=== PATIENT | male | born 1950 | race Caucasian/White ===

== ENCOUNTER 2018-07-21 01:05 | Observation (INO) | payer MEDICARE ==
[2018-07-21 01:38] LABS: #Eosinphils 0.4 thou/uL (0.0-0.7); #Lymphocytes 1.3 thou/uL (1.20-3.40); #Monocytes 0.6 thou/uL (0.11-0.59); #Neutrophils 5.4 thou/uL (1.40-6.50); %Basophils 0.4 % (0.0-1.0); %Eosinophils 4.6 % (0.0-10.0); %Monocytes 7.2 % (0.0-10.0); %Neutrophils 70.8 % (42.0-75.0); Hemoglobin 11.4 g/dL (14.0-18.0); Mean Corpuscular HGB CONC 33.2 g/dL (32.0-36.0); Mean Corpuscular Hemoglobin 30.6 pg (27.0-31.0); Mean Corpuscular Volume 92.1 fL (78.0-98.0); Mean Platelet Volume 7.3 fL (7.4-10.4); Platelet Count 188 thou/uL (130-400); RBC Distribution Width 15.5 % (11.5-14.5); Red Blood Cell (RBC) Count 3.72 mill/uL (4.70-6.10); White Blood Cell (WBC) Count 7.7 thou/uL (4.8-10.8)
[2018-07-21 01:59] LABS: ALT (SGPT) 19 U/L (8-55); AST (SGOT) 22 U/L (5-34); Albumin 3.5 g/dL (3.4-4.8); Alkaline Phosphatase 75 U/L (40-150); Anion Gap 15 mmol/L (10-20); BUN (Urea Nitrogen) 59 mg/dL (8.4-25.7); Bilirubin, Total 0.6 mg/dL (0.2-1.2); Calc. Creatinine Clearance 0 mL/min (70-130); Calcium 9.1 mg/dL (7.8-10.44); Carbon Dioxide 24 mmol/L (23-31); Chloride 103 mmol/L (98-107); Estimated GFR-MDRD 23; Globulin 3.8 g/dL (2.4-3.5); Glucose 175 mg/dL (80-115); Potassium 4.4 mmol/L (3.5-5.1); Protein, Total 7.3 g/dL (5.8-8.1); Sodium 138 mmol/L (136-145)
[2018-07-21 02:31] LABS: CKMB 4.7 ng/mL (0-6.6)
[2018-07-21] MEDS ORDERED: Furosemide 40 MG/4 ML VIAL ONE (03:36)
[2018-07-21 05:04] VITALS: BMI 34.0
[2018-07-21] MEDS ORDERED: Ondansetron PF 4 MG/2 ML Vial IVP PRN (05:11)
[2018-07-21] MEDS ORDERED: Ondansetron ODT 4 MG TAB SL PRN (05:11)
[2018-07-21] MEDS ORDERED: Acetaminophen 325 MG TAB PO PRN ×2 (05:11→05:34)
[2018-07-21] MEDS ORDERED: Dextrose 50% Abboject 50 ML SYRINGE SLOW IVP PRN (06:15)
[2018-07-21] MEDS ORDERED: Dextrose 5% in Water 1,000 ML IV PRN (06:15)
[2018-07-21 08:19] LABS: Troponin I 0.237 ng/mL (< 0.028)
--- NOTE | 2018-07-21 08:26 | RAD ---
PORTABLE CHEST 1 VIEW: Date: 07/21/18 Time: 0131 hours HISTORY: Dyspnea. FINDINGS/IMPRESSION: Comparison made with exam of 06/16/18. Changes of median sternotomy again seen. Left-sided pacemaker device remains in place. There is prakash nued elevation of the right hemidiaphragm. There is mild pulmonary vascular congestion. A small right pleural effusion may be present. No pneumothoraces are seen. POS: [facility]
--- NOTE | 2018-07-21 08:26 | HP ---
CHIEF COMPLAINT: Shortness of breath. HISTORY OF PRESENT ILLNESS: The patient is a 67-year-old male with past medical history of diabetes, AFib, and history of systolic heart failure, who presented to the hospital with complaints of shortness of breath for the past couple of days. The patient states that he has been short of breath for the past couple of days; however, today he has had some chest tightness radiating down his left extremity, which concerned him, so he came into the hospital for further evaluation. The patient has not been really weighing himself. He just feels that his legs have been swollen for the past couple of days. Also, he states that he has some paroxysmal nocturnal dyspnea and some orthopnea. The patient currently denies any chest tightness. He states that he also felt that his heart rate has been elevated in the ER in the 120s to 130s. The patient states he has been compliant with his medication, has not missed any of his doses. He does watch what he takes in terms of salt intake, however, sometimes when he gets very thirsty, he drinks quite a bit of water also. Denies any fevers or chills. Denies any cough. Denies any nausea, vomiting, or diarrhea. PAST MEDICAL HISTORY: He has, 1. History of hypertension. 2. Hyperlipidemia. 3. Type 2 diabetes. 4. Coronary artery disease. 5. BPH. 6. Lower back pain. 7. Paroxysmal AFib. 8. COPD. PAST SURGICAL HISTORY: He has carpal tunnel release. He has had a bypass in 2017, left shoulder surgery, cholecystectomy, and prior catheterization. ALLERGIES: HE IS INTOLERANT TO HIGH-DOSE ASPIRIN, BUT CAN TOLERATE LOW-DOSE ASPIRIN. MEDICATIONS: He takes; 1. Eliquis 5 mg b.i.d. 2. Carvedilol 12.5 b.i.d. 3. Spironolactone 50 mg daily. 4. Fluoxetine 20 mg daily. 5. Finasteride 5 mg daily. 6. Gabapentin 600 mg at bedtime. 7. Insulin 20 units Lantus b.i.d. 8. Ropinirole 3 mg at bedtime. 9. Senokot 8.6 mg 2 tabs at bedtime. 10. Oxybutynin 5 mg b.i.d. 11. Bumex 3 mg b.i.d. REVIEW OF SYSTEMS: All negative, except for the ones mentioned above in HPI. SOCIAL HISTORY: The patient still smokes half a pack a day. He denies any alcohol use or drug use. He lives at home with his family and he is a full code. FAMILY HISTORY: His sister of heart aneurysm at the age of 53. Mother of complications of diabetes at the age of 70. Father of some type of cancer in 50s. PHYSICAL EXAMINATION: GENERAL: He is awake, alert, and oriented x3. He does not appear in any distress. CV: S1 and S2 present. He is irregularly irregular. LUNGS: Mild expiratory wheeze, otherwise pretty clear. ABDOMEN: Soft and nontender. Bowel sounds are present x2. EXTREMITIES: He does have +1 lower extremity edema. Pedal pulses are present x2. HEENT: Mild JVD is noted. Otherwise, mucous membranes are intact. No dryness has been noted. NEUROVASCULAR: Neurovascular-grover, no focal deficits noted. The patient is able to move all 4 extremities. SKIN: No cuts, lesions, or bruises noted. LABORATORY RESULTS: Sodium of 138, potassium of 4.4, BUN of 59, creatinine of 2.82, and glucose of 175. His troponin x1 is 0.174, second one was 0.220. His BNP was 1708. His hemoglobin of 11.4, hematocrit of 34.2, WBCs of 7.7, and platelets of 188. His chest x-ray has significant vascular congestion that is noted. ASSESSMENT AND PLAN: The patient is a 67-year-old male, who comes to the hospital with complaints of shortness of breath. 1. Acute on chronic systolic heart failure. He does have elevated proBNP. However, his creatinine is also elevated. The patient states that he has gained quite a significant amount of weight. He does not weigh himself every day. He apparently is compliant with his medications. The patient was a little bit tachycardic when he came in. This could be secondary to mild pulmonary edema from the tachycardia. We will start the patient on Bumex IV twice a day. Also, we will continue his home medications. May consider getting Cardiology consult or may titrate his medications up for better rate control. 2. Acute kidney injury on chronic kidney disease. We will continue Bumex. We will continue to monitor. If that worsens, may recommend getting Nephrology consult. 3. Atrial fibrillation with variable heart rate symptoms. The patient is in the 93, sometimes he goes up still in the high teens, maybe he needs his heart rate to be controlled a little bit more better. We maybe titrating up some of his medications that would help with this. 4. Coronary artery disease. The patient had a bypass. He automatic implantable cardioverter-defibrillator. He continues to still smoke. I addressed smoking session, however, he is not ready to quit as of yet. 5. Deep vein thrombosis prophylaxis. The patient is already on Eliquis. 6. Diabetes. We will continue his home medications and put him on a.c. and h.s. checks and sliding scale. Job ID: [id number]
[2018-07-21] MEDS ORDERED: Heparin 5,000 UNITS/ML VIAL SC SCH (09:00)
[2018-07-21] MEDS ORDERED: Furosemide 40 MG/4 ML VIAL SLOW IVP SCH (09:00)
[2018-07-21] MEDS: Ferrous Sulfate 325 MG TAB PO SCH (09:10)
[2018-07-21] MEDS: FLUoxetine HCl 20 MG CAP PO SCH (09:11)
[2018-07-21] MEDS: Insulin Glargine 28 UNITS in Pre-Filled Syringe 1 EACH SC SCH ×2 (09:11→21:15)
[2018-07-21] MEDS: Carvedilol 25 MG TAB PO SCH ×2 (09:11→21:08)
[2018-07-21] MEDS: Apixaban 5 MG TAB PO SCH ×2 (09:11→21:10)
[2018-07-21] MEDS: Bumetanide 1 MG/4 ML VIAL IVP SCH (15:34)
[2018-07-21] MEDS: Senokot 8.6 MG TAB PO SCH (21:08)
[2018-07-21] MEDS: Finasteride 5 MG TAB PO SCH (21:08)
[2018-07-21] MEDS: Gabapentin 300 MG CAP PO SCH (21:08)
[2018-07-21] MEDS: rOPINIRole HCl 2 MG TAB PO SCH (21:10)
[2018-07-21] MEDS ORDERED: HumaLOG 300 UNITS/3 ML VIAL SC PRN (21:46)
[2018-07-22 05:30] LABS: #Eosinphils 0.4 thou/uL (0.0-0.7); #Lymphocytes 1.2 thou/uL (1.20-3.40); #Monocytes 0.5 thou/uL (0.11-0.59); #Neutrophils 4.3 thou/uL (1.40-6.50); %Basophils 0.4 % (0.0-1.0); %Lymphocytes 18.6 % (21.0-51.0); %Monocytes 7.4 % (0.0-10.0); %Neutrophils 67.6 % (42.0-75.0); Hemoglobin 10.9 g/dL (14.0-18.0); Mean Corpuscular HGB CONC 32.6 g/dL (32.0-36.0); Mean Corpuscular Hemoglobin 30.4 pg (27.0-31.0); Mean Corpuscular Volume 93.2 fL (78.0-98.0); Mean Platelet Volume 7.3 fL (7.4-10.4); Platelet Count 179 thou/uL (130-400); RBC Distribution Width 15.6 % (11.5-14.5); Red Blood Cell (RBC) Count 3.59 mill/uL (4.70-6.10); White Blood Cell (WBC) Count 6.3 thou/uL (4.8-10.8)
[2018-07-22 05:50] LABS: Anion Gap 15 mmol/L (10-20); BUN (Urea Nitrogen) 53 mg/dL (8.4-25.7); Calc. Creatinine Clearance 50 mL/min (70-130); Calcium 9.2 mg/dL (7.8-10.44); Carbon Dioxide 25 mmol/L (23-31); Chloride 105 mmol/L (98-107); Estimated GFR-MDRD 27; Glucose 135 mg/dL (80-115); Potassium 3.9 mmol/L (3.5-5.1); Sodium 141 mmol/L (136-145)
[2018-07-22] MEDS: HumaLOG 300 UNITS/3 ML VIAL SC PRN ×2 (06:32→11:46)
[2018-07-22] MEDS: Bumetanide 1 MG/4 ML VIAL IVP SCH ×2 (06:35→15:27)
[2018-07-22] MEDS: Insulin Glargine 28 UNITS in Pre-Filled Syringe 1 EACH SC SCH ×2 (08:56→21:57)
[2018-07-22] MEDS: Ferrous Sulfate 325 MG TAB PO SCH (08:57)
[2018-07-22] MEDS: Apixaban 5 MG TAB PO SCH ×2 (08:58→21:22)
[2018-07-22] MEDS: Carvedilol 25 MG TAB PO SCH ×2 (08:58→21:23)
[2018-07-22] MEDS: FLUoxetine HCl 20 MG CAP PO SCH (08:58)
--- NOTE | 2018-07-22 11:04 | PDOC.PN ---
- Subjective Encounter Start Date: 07/22/18 Encounter Start Time: 10:30 Subjective: Continues with sob. Normally on duo nebs q4-6h at home. Last neb yesterday. -: Persistent edema. No CP, cough or hemoptysis. No N/V. Tolerating food. -: Smoker, perfers to stop cold turkey.Afebrile. Constipation slightly better Patient states he is admitted every 2-3 weeks at [facility] for similar problem of SOB associated with exacerbation of CHF. Feels he never gets answers on underlying cause for recurring problem and therefore opted to come here. Requires IV management but has not had any improvement on Bumex. Requires CPAP at night, and denies being on oxygen at home. Previous Echo on file shows EF of 35-40% with severe LV dysfunction, severe AV stenosis. Status post valve replacement in 2017. - Objective Resuscitation Status - Order Detail: 07/21/18 05:34 Resuscitation Status Routine Resuscitation Status: FULL: Full Resuscitation MAR Reviewed: Yes Vital Signs & Weight: Vital Signs (12 hours) Temp Pulse Resp BP BP Pulse Ox 07/22/18 07:43 97.7 F 86 18 102/77 95 07/22/18 03:49 97.8 F 87 20 99/70 96 07/21/18 23:16 97.5 F L 88 18 104/70 93 L Weight Weight 258 lb 4.8 oz I&O: 07/21/18 07/22/18 07/23/18 06:59 06:59 06:59 Intake Total 100 1200 Output Total 275 1975 Balance -134 -435 Result Diagrams: 07/22/18 04:43 07/22/18 04:43 Additional Labs: Accuchecks 07/22/18 07/22/18 07/21/18 10:12 05:16 20:46 POC Glucose 167 H 156 H 289 H 07/21/18 16:40 POC Glucose 215 H Phys Exam - Physical Examination HEENT: PERRLA, sclera anicteric Lips dry. Neck: no nodes, supple, full ROM Respiratory: no wheezing, no rales, no rhonchi, clear to auscultation bilateral Cardiovascular: RRR, no significant murmur Gastrointestinal: soft Obese, moderately distended. Periumbilical hernia, reducible Mild epigastric discomfort with deep palpation Bilateraly pitting edema present Neurological: non-focal Psychiatric: normal affect, A&O x 3 Skin: no rash, cap refill <2 seconds Dx/Plan (1) Acute on chronic congestive heart failure Code(s): I50.9 - HEART FAILURE, UNSPECIFIED Status: Acute (2) CKD (chronic kidney disease) stage 3, GFR 30-59 ml/min Status: Acute (3) COPD exacerbation Code(s): J44.1 - CHRONIC OBSTRUCTIVE PULMONARY DISEASE W (ACUTE) EXACERBATION Status: Acute (4) Diabetes Code(s): E11.9 - TYPE 2 DIABETES MELLITUS WITHOUT COMPLICATIONS Status: Acute Qualifiers: Diabetes mellitus type: type 2 Comment: worsen due to steroid (5) HTN (hypertension) Code(s): I10 - ESSENTIAL (PRIMARY) HYPERTENSION Status: Acute (6) Tobacco abuse Code(s): Z72.0 - TOBACCO USE Status: Acute - Plan cont current plan of care Scheduled duo nebs q 4hrs. -: Continue Bumex. Cardiology consult, given no improvement. -: Continue fluid restriction. -: Monitor kidney function. * .
[2018-07-22] MEDS: Finasteride 5 MG TAB PO SCH (21:22)
[2018-07-22] MEDS: Senokot 8.6 MG TAB PO SCH (21:22)
[2018-07-22] MEDS: Gabapentin 300 MG CAP PO SCH (21:23)
[2018-07-22] MEDS: rOPINIRole HCl 2 MG TAB PO SCH (21:24)
--- NOTE | 2018-07-23 01:36 | CON ---
DATE OF CONSULTATION: 07/22/2018 REASON FOR CONSULTATION: Congestive heart failure, previously seen and evaluated by Dr. Yobany Rivera. HISTORY OF PRESENT ILLNESS: Mr. De La Torre is a 67-year-old gentleman who has a very long history of cardiac problems. He had history of atrial fibrillation with many recurrences in the past, has had ablations and multiple medications including amiodarone. He had recurrent episodes of atrial fibrillation despite these maneuvers. He ultimately had to be taken off amiodarone due to pulmonary problems. In 2017, he was found to have severe aortic valvular heart disease and underwent cardiac catheterization at [facility] here in [place] and subsequent yomaira replacement, bioprosthetic valve by Dr. Nina. The patient states that his arteries were clear of any blockage at that time. He had a pacemaker anchor placed as well. Subsequently, the pacemaker had to be upgraded to a biventricular device. The patient has had multiple hospitalizations with congestive heart failure. He came to the hospital yesterday with difficulty breathing and edema. He also wished to be evaluated by the [employer] product strategy director. Also is noted that his heart rate has been elevated. PAST MEDICAL HISTORY: 1. Hypertension. 2. Hyperlipidemia. 3. Coronary artery disease. 4. Paroxysmal atrial fibrillation. 5. COPD. 6. The patient, I suspect, has history of heart failure, but he does not know about that for sure. PAST SURGICAL HISTORY: Valve replacement in 2017. He said he did not have any blockage in his coronary arteries. ALLERGIES: INTOLERANCE TO HIGH-DOSE ASPIRIN. MEDICATIONS: 1. Eliquis 5 mg twice a day. 2. Carvedilol 12.5 mg twice a day. 3. Spironolactone 50 mg a day. 4. Fluoxetine 20 mg a day. 5. Finasteride 5 mg a day. 6. Gabapentin. 7. Insulin. 8. Senokot. 9. Oxybutynin. 10. Bumex 3 mg twice a day. REVIEW OF SYSTEMS: CONSTITUTIONAL: No significant weight gain or loss. VISION: No changes. HEARING: No changes. PULMONARY: No cough or wheezing. GASTROINTESTINAL: No nausea, vomiting, or diarrhea. SKIN: No rashes. NEUROLOGIC: No unilateral weakness or numbness. PSYCHIATRIC: No unusual depression or anxiety. SOCIAL HISTORY: Smokes 1/2 pack cigarettes per day. No alcohol or drugs. FAMILY HISTORY: Sister of a heart aneurysm at age 53. PHYSICAL EXAMINATION: GENERAL: This is a pleasant 67-year-old gentleman, in no distress. VITAL SIGNS: Blood pressure 131/67, pulse in the 90s, it is irregular. EYES: Sclerae nonicteric. MOUTH: Mucous membranes moist. NECK: Supple. No lymphadenopathy. LUNGS: Clear. No wheezing, rales, or rhonchi. CARDIAC: Normal S1, normal S2. There is no murmur, rub, or gallop now. ABDOMEN: Obese and nontender. No hepatomegaly. EXTREMITIES: Moderate peripheral edema. SKIN: Warm and dry. PERTINENT LABORATORY: His creatinine is 2.46, hemoglobin is 10.9. Potassium is 3.9. BNP is 1708 Chest x-ray reveals slight cardiomegaly with pulmonary congestion and heart failure. Echocardiogram showed ejection fraction of 15% to 20%. There is a bioprosthetic aortic valve in place with normal function. There is moderate to severe mitral regurgitation. There is a moderately elevated pulmonary artery pressure. Ejection fraction 15% to 20%. Severe global hypokinesis, could not exclude the possibility of an LV thrombus, but it is probably artifactual. ASSESSMENT: 1. Congestive heart failure, systolic, severe. 2. Biventricular pacemaker placed according to the patient and indeed the x-ray does confirm that a biventricular device. 3. Previous bioprosthetic aortic valve. 4. Atrial fibrillation, which appears to be persistent. PLAN: 1. Interrogate the generator, may need to consider AV junction ablation if indeed the rate cannot be controlled with beta blockers. 2. Intravenous diuretic as he is volume overloaded. 3. Further care dictated by hospital course. 4. The patient states his backup sawyer is Dr. Sepulveda. At some point, consideration for defibrillator implantation may need to be given. Job ID: [id number]
[2018-07-23] MEDS: Bumetanide 1 MG/4 ML VIAL IVP SCH ×2 (05:50→14:03)
[2018-07-23 06:23] LABS: Iron 40 ug/dL (65-175); Iron Binding Capacity, Total 326 mcg/dL (261-462)
[2018-07-23] MEDS: Insulin Glargine 28 UNITS in Pre-Filled Syringe 1 EACH SC SCH ×2 (09:51→21:10)
[2018-07-23] MEDS: Senokot 8.6 MG TAB PO SCH ×2 (09:52→21:13)
[2018-07-23] MEDS: Carvedilol 25 MG TAB PO SCH ×2 (09:53→21:14)
[2018-07-23] MEDS: Apixaban 5 MG TAB PO SCH ×2 (09:53→21:12)
[2018-07-23] MEDS: FLUoxetine HCl 20 MG CAP PO SCH (09:54)
[2018-07-23 10:37] LABS: #Eosinphils 0.3 thou/uL (0.0-0.7); #Monocytes 0.5 thou/uL (0.11-0.59); #Neutrophils 4.1 thou/uL (1.40-6.50); %Basophils 0.5 % (0.0-1.0); %Eosinophils 5.6 % (0.0-10.0); %Lymphocytes 17.1 % (21.0-51.0); %Neutrophils 68.9 % (42.0-75.0); Hemoglobin 10.8 g/dL (14.0-18.0); Mean Corpuscular HGB CONC 31.5 g/dL (32.0-36.0); Mean Corpuscular Hemoglobin 29.5 pg (27.0-31.0); Mean Corpuscular Volume 93.5 fL (78.0-98.0); Mean Platelet Volume 7.3 fL (7.4-10.4); Platelet Count 174 thou/uL (130-400); RBC Distribution Width 15.3 % (11.5-14.5); Red Blood Cell (RBC) Count 3.66 mill/uL (4.70-6.10)
[2018-07-23 10:54] LABS: ALT (SGPT) 14 U/L (8-55); AST (SGOT) 16 U/L (5-34); Albumin 3.4 g/dL (3.4-4.8); Alkaline Phosphatase 72 U/L (40-150); Anion Gap 14 mmol/L (10-20); BUN (Urea Nitrogen) 54 mg/dL (8.4-25.7); Bilirubin, Total 0.8 mg/dL (0.2-1.2); Calc. Creatinine Clearance 45 mL/min (70-130); Calcium 9.1 mg/dL (7.8-10.44); Carbon Dioxide 26 mmol/L (23-31); Chloride 102 mmol/L (98-107); Estimated GFR-MDRD 24; Globulin 3.5 g/dL (2.4-3.5); Glucose 196 mg/dL (80-115); Potassium 4.6 mmol/L (3.5-5.1); Protein, Total 6.9 g/dL (5.8-8.1); Sodium 137 mmol/L (136-145)
[2018-07-23] MEDS ORDERED: Oxybutynin 5 MG TAB PO SCH (11:30)
[2018-07-23] MEDS: Ferrous Sulfate 325 MG TAB PO SCH (12:14)
[2018-07-23] MEDS: HumaLOG 300 UNITS/3 ML VIAL SC PRN (12:15)
--- NOTE | 2018-07-23 13:24 | PDOC.PN ---
- Subjective Encounter Start Date: 07/23/18 Encounter Start Time: 07:22 Subjective: Patient sat up comfortably. Not visibly SOB. -: Reports having improvement with BLE edema. No calf pain. -: Went for a walk downstairs and states he feels slightly SOB with exertion. Reports constipation. On senna at bedtime. No bright red blood per rectum. Echo done, showed severely enlarged LV with EF 15-20%. BNP improved from 1708 to 1517. Feels he is not urinating as much as he usually does with Bumex at home. However he acknowledges he usually drinks more fluids and is on fluid restriction. - Objective Resuscitation Status - Order Detail: 07/21/18 05:34 Resuscitation Status Routine Resuscitation Status: FULL: Full Resuscitation Vital Signs & Weight: Vital Signs (12 hours) Temp Pulse Resp BP BP Pulse Ox 07/23/18 11:28 97.1 F L 89 16 112/78 95 07/23/18 10:23 83 16 96 07/23/18 09:51 88 104/68 07/23/18 07:58 97.3 F L 87 16 102/70 94 L 07/23/18 07:06 71 16 96 07/23/18 04:20 97.4 F L 85 18 122/73 92 L 07/23/18 03:06 87 16 94 L Weight Weight 255 lb 14.4 oz I&O: 07/22/18 07/23/18 07/24/18 06:59 06:59 06:59 Intake Total 1200 1240 530 Output Total 1975 1425 300 Balance -775 -185 230 Result Diagrams: 07/23/18 10:22 07/23/18 10:22 Additional Labs: Accuchecks 07/23/18 07/23/18 07/22/18 11:31 05:49 20:46 POC Glucose 177 H 106 172 H 07/22/18 17:15 POC Glucose 157 H Dx/Plan (1) Acute on chronic congestive heart failure Code(s): I50.9 - HEART FAILURE, UNSPECIFIED Status: Acute (2) CKD (chronic kidney disease) stage 3, GFR 30-59 ml/min Status: Acute (3) COPD exacerbation Code(s): J44.1 - CHRONIC OBSTRUCTIVE PULMONARY DISEASE W (ACUTE) EXACERBATION Status: Acute (4) Diabetes Code(s): E11.9 - TYPE 2 DIABETES MELLITUS WITHOUT COMPLICATIONS Status: Acute Qualifiers: Diabetes mellitus type: type 2 Comment: worsen due to steroid (5) HTN (hypertension) Code(s): I10 - ESSENTIAL (PRIMARY) HYPERTENSION Status: Acute (6) Tobacco abuse Code(s): Z72.0 - TOBACCO USE Status: Acute - Plan * .
[2018-07-23] MEDS: Nicotine 14 MG PATCH TD SCH (15:47)
[2018-07-23] MEDS ORDERED: Bumetanide 1 MG/4 ML VIAL IVP SCH (19:45)
--- NOTE | 2018-07-23 20:53 | PRG ---
DATE OF SERVICE: 07/23/2018 SUBJECTIVE: Mr. De La Torre is not diuresing very well, but he has been sitting up in a chair much of the day. OBJECTIVE: VITAL SIGNS: Blood pressure 125/92 and pulse is in the 80s. LUNGS: Clear. CARDIAC: Normal S1 and normal S2. ABDOMEN: Soft and nontender. EXTREMITIES: Still severe edema. LABORATORY DATA: Creatinine is 2.68. DIAGNOSTIC DATA: Echocardiogram reveals an ejection fraction of 15% to 20%. ASSESSMENT: 1. Advanced congestive heart failure. 2. Previous aortic valve replacement, bioprosthetic with normal function. 3. Biventricular pacing is not pacing much of the time, therefore, he is not getting the full benefit. PLAN: 1. Increase carvedilol. 2. The patient is going to try to his feet to mobilize the edema. 3. The patient may need to have his device upgraded to a biventricular pacemaker defibrillator. Job ID: [id number]
[2018-07-23] MEDS: rOPINIRole HCl 2 MG TAB PO SCH (21:11)
[2018-07-23] MEDS: Gabapentin 300 MG CAP PO SCH (21:12)
[2018-07-23] MEDS: Finasteride 5 MG TAB PO SCH (21:13)
[2018-07-23] MEDS: Oxybutynin 5 MG TAB PO SCH (21:13)
[2018-07-24 04:47] LABS: #Eosinphils 0.3 thou/uL (0.0-0.7); #Lymphocytes 1.3 thou/uL (1.20-3.40); #Monocytes 0.6 thou/uL (0.11-0.59); #Neutrophils 4.2 thou/uL (1.40-6.50); %Basophils 0.5 % (0.0-1.0); %Eosinophils 4.4 % (0.0-10.0); %Lymphocytes 20.2 % (21.0-51.0); %Monocytes 8.9 % (0.0-10.0); %Neutrophils 65.9 % (42.0-75.0); Hemoglobin 10.9 g/dL (14.0-18.0); Mean Corpuscular HGB CONC 32.3 g/dL (32.0-36.0); Mean Corpuscular Hemoglobin 30.4 pg (27.0-31.0); Mean Corpuscular Volume 94.2 fL (78.0-98.0); Mean Platelet Volume 7.4 fL (7.4-10.4); Platelet Count 169 thou/uL (130-400); RBC Distribution Width 15.5 % (11.5-14.5); Red Blood Cell (RBC) Count 3.58 mill/uL (4.70-6.10); White Blood Cell (WBC) Count 6.3 thou/uL (4.8-10.8)
[2018-07-24 05:11] LABS: ALT (SGPT) 14 U/L (8-55); AST (SGOT) 16 U/L (5-34); Albumin 3.5 g/dL (3.4-4.8); Alkaline Phosphatase 70 U/L (40-150); Anion Gap 13 mmol/L (10-20); BUN (Urea Nitrogen) 56 mg/dL (8.4-25.7); Bilirubin, Total 0.6 mg/dL (0.2-1.2); Calc. Creatinine Clearance 45 mL/min (70-130); Calcium 9.2 mg/dL (7.8-10.44); Carbon Dioxide 29 mmol/L (23-31); Chloride 103 mmol/L (98-107); Estimated GFR-MDRD 24; Globulin 3.5 g/dL (2.4-3.5); Glucose 91 mg/dL (80-115); Magnesium 2.3 mg/dL (1.6-2.6); Potassium 4.3 mmol/L (3.5-5.1); Sodium 141 mmol/L (136-145)
[2018-07-24] MEDS: Bumetanide 1 MG/4 ML VIAL IVP SCH ×2 (06:14→13:01)
[2018-07-24] MEDS: Oxybutynin 5 MG TAB PO SCH (08:51)
[2018-07-24] MEDS: Ferrous Sulfate 325 MG TAB PO SCH (08:51)
[2018-07-24] MEDS: Apixaban 5 MG TAB PO SCH (08:51)
[2018-07-24] MEDS: FLUoxetine HCl 20 MG CAP PO SCH (08:51)
[2018-07-24] MEDS: Carvedilol 25 MG TAB PO SCH (08:51)
[2018-07-24] MEDS: Insulin Glargine 28 UNITS in Pre-Filled Syringe 1 EACH SC SCH (08:52)
[2018-07-24] MEDS: Senokot 8.6 MG TAB PO SCH (08:52)
--- NOTE | 2018-07-24 10:20 | PRG ---
DATE OF SERVICE: 07/24/2018 SUBJECTIVE: Mr. De La Torre is feeling somewhat better. He is still sitting at the side of the bed. Really, I have encouraged him to try to elevate his feet, but I have not really seen him in the bed ever since I have been coming by. OBJECTIVE: VITAL SIGNS: His blood pressure is 113/72. Pulse is 80, it is paced, looks like it is a biventricular paced rhythm. LUNGS: Clear. CARDIAC: Regular. ABDOMEN: Obese and nontender. EXTREMITIES: Still moderate edema. LABORATORY DATA: Creatinine is 2.73, estimated GFR is 24. There is no significant change. ASSESSMENT: 1. Congestive heart failure, systolic, chronic, improving. 2. Stage 4 renal failure. 3. Atrial fibrillation, chronic. 4. Cannot take ALONSO inhibitors or ARBs due to renal failure. 5. On biventricular pacemaker check, he was not biventricular pacing much of the time, therefore, was not getting the full benefit. PLAN: 1. Coreg has been increased to 25 mg twice a day. 2. He is on Bumex 1 mg twice a day. When he goes home, I would recommend torsemide 20 mg twice a day. 3. He is unsure whether he was to follow up with his business support manager at [facility] including Dr. Sepulveda at [facility] or transfer to our system. If he stays in our system, he would be followed up with Dr. Yobany Rivera. I had a long talk with him about the defibrillator. My recommendation is to have this upgraded to a defibrillator. He says as long as it makes him feel better, I explained to him that it will not make him feel better, but it could be life-saving in the event of ventricular fibrillation. He has approximately 5% per year risk of sudden , and the defibrillator may well save his life. The patient is unable to make a decision at this point. Dr. Cooley will be seeing the patient in the next few days. Dr. Yobany Rivera is his primary business support manager in this area, or if he wishes to go to [facility], that is also fine. He understands that he is to follow up with someone. Job ID: [id number]
[2018-07-24] MEDS: HumaLOG 300 UNITS/3 ML VIAL SC PRN (10:56)
[2018-07-24] MEDS ORDERED: Guaifenesin DM 100-10/5 ML UDCUP PO PRN (12:48)
[2018-07-24] MEDS: Nicotine 14 MG PATCH TD SCH (13:01)
[2018-07-24 15:31] VITALS: BP 93/66; TEMP 97.5
--- NOTE | 2018-07-24 15:35 | EKG ---
Test Reason : Blood Pressure : / mmHG Vent. Rate : 109 BPM Atrial Rate : 127 BPM P-R Int : 000 ms QRS Dur : 106 ms QT Int : 312 ms P-R-T Axes : 000 181 118 degrees QTc Int : 420 ms Ventricular-paced rhythm Abnormal ECG Confirmed by LORAINE CORBIN ([id number]), video editor QUAN LAZO ([id number]) on 07/24/2018 3:34:54 PM Referred By: SHAQUILLE Confirmed By:LORAINE CORBIN
[2018-07-24] MEDS ORDERED: Famotidine 20 MG TAB PO SCH (21:00)
--- NOTE | 2018-07-24 21:48 | DIS ---
DATE OF ADMISSION: 07/21/2018 DATE OF DISCHARGE: 07/24/2018 DISCHARGE DIAGNOSES: 1. Progressive congestive heart failure. 2. Hypertension. 3. Hyperlipidemia. 4. Atrial fibrillation. 5. Constipation. 6. Indigestion. 7. Chronic kidney disease. CONSULTATIONS: Dr. Peralta of Cardiology. HOSPITAL COURSE: Mr. De La Torre is a pleasant 67-year-old man who presented with increasing shortness of breath and lower limb edema, attributed to acute on chronic CHF. The patient is known to Cardiology at [facility] and CT was advised by Dr. Sepulveda. He would require a biventricular pacemaker. The patient opted to come to [facility] seeking the second opinion regarding his options. Upon initial presentation, he was noted to have a BNP of 1708.9. Since then, this has improved slightly to 1517.5. The patient was started on Bumex and has had an improvement with lower limb edema as well as shortness of breath. Initial studies in the ED included a chest x-ray which showed mild pulmonary vascular congestion and small right pleural effusion. He had an ECG showing a ventricular paced rhythm. The patient was admitted for diuresis for further workup/investigations. He has been followed by Dr. Peralta during his hospital stay. Reports were obtained from [facility] and it appears he had an echo in April 2016 that showed an EF of 35% to 40%. During his hospital stay, we did repeat an echo that showed a further reduce EF of 15% to 20% currently. The patient underwent changes in his medications per recommendations by Dr. Peralta. He was advised that he would eventually benefit from a biventricular pacemaker. Dr. Peralta discussed proceeding with these recommendations under our care versus resuming care at [facility] under Dr. Sepulveda. The patient states since the recommendations are not different than what were given at [facility], he wishes to undergo further investigations and interventions back there. During his hospital stay, the patient did complain of constipation, which was treated with senna stool softeners twice daily. There was notable improvement. He will continue with this at home. He also did complain of indigestion and was started on Pepcid 20 mg b.i.d., which he will also continue as an outpatient. He has been cleared for discharge home. REVIEW OF SYSTEMS: On the day of discharge, the patient continues to have trace lower limb edema, however significantly improved from initial presentation. He has been mobilizing, with mild shortness of breath but seems to be back to his baseline. He remains afebrile and tolerating food and liquids. No abdominal pain. Denies any nausea or vomiting. Has not had any chest pain or palpitations. No urinary complaints. All other review of systems are negative at present time. PHYSICAL EXAMINATION: VITAL SIGNS: Stable. GENERAL: The patient appears comfortable and in no acute distress. SKIN: Normal warm and dry. LUNGS: Clear bilaterally. CARDIAC: Unremarkable. ABDOMEN: Soft, nontender, and nondistended. EXTREMITIES: Notable for trace bilateral edema. No calf pain tenderness. NEUROLOGIC: Alert and oriented x3. No focal deficits. LABORATORY DATA: White blood count 6.3, hemoglobin 10.9, hematocrit 33.7, and platelets 169. Sodium 141, potassium 4.3, BUN 56, and creatinine 2.73. Renal function derangements stable. Iron was low at 40. LFTs unremarkable. BNP 1517.5. Albumin 3.5. IMAGING DATA: 1. Chest x-ray on 07/21/2018, showed mild pulmonary vascular congestion and a small right pleural effusion suspected. 2. Echo on 07/22/2018, showed left ventricular size severely increased. EF of 15% to 20% with severe global hypokinesis, inability to exclude an LV thrombus. Left atrium moderately to severely dilated. [id number] mitral regurgitation. Bioprosthetic aortic valve with normal function and mild aortic insufficiency. [id number] tricuspid regurgitation. Moderately elevated pulmonary artery pressure. DISCHARGE MEDICATIONS: 1. Carvedilol increased to 25 mg p.o. b.i.d., prescription provided. 2. Spironolactone discontinued. 3. Furosemide 10 mg p.o. b.i.d., prescribed. 4. Pepcid 20 mg p.o. b.i.d., prescribed. 5. Senna two tablets p.o. b.i.d., prescribed p.r.n. for constipation. 6. Bumex also discontinued. Otherwise, the patient advised to resume all other home medications. CONDITION: Stable at discharge. ACTIVITY: As tolerated. DIET: Heart healthy diet with fluid restrictions. FOLLOWUP: The patient will see his primary care physician within 1 to 2 weeks. He will also follow up with Dr. Sepulveda of Cardiology. DISPOSITION: The patient cleared for discharge to home today, July 24, 2018. Job ID: [id number] [id number]
== END 2018-07-24 16:16 | disposition home or self-care (01) ==
LOC: ERS 01:05 → 2SW 03:30
PROVIDERS: ADMIT Internal Medicine; ATTEND Internal Medicine
DX: I13.0 Hypertensive heart and chronic kidney disease with heart failure and stage 1 through stage 4 chronic kidney disease, or unspecified chronic kidney disease (principal); E11.22 Type 2 diabetes mellitus with diabetic chronic kidney disease; N18.4 Chronic kidney disease, stage 4 (severe); I50.22 Chronic systolic (congestive) heart failure; N17.9 Acute kidney failure, unspecified; I25.10 Atherosclerotic heart disease of native coronary artery without angina pectoris; E78.5 Hyperlipidemia, unspecified; I48.2 Chronic atrial fibrillation; I48.0 Paroxysmal atrial fibrillation; J44.9 Chronic obstructive pulmonary disease, unspecified; N40.0 Benign prostatic hyperplasia without lower urinary tract symptoms; F17.210 Nicotine dependence, cigarettes, uncomplicated; J44.1 Chronic obstructive pulmonary disease with (acute) exacerbation; E66.9 Obesity, unspecified; Z68.34 Body mass index [BMI] 34.0-34.9, adult; Z95.1 Presence of aortocoronary bypass graft; Z90.49 Acquired absence of other specified parts of digestive tract; Z88.6 Allergy status to analgesic agent; Z88.8 Allergy status to other drugs, medicaments and biological substances; Z79.01 Long term (current) use of anticoagulants; Z79.4 Long term (current) use of insulin; Z79.899 Other long term (current) drug therapy; Z98.890 Other specified postprocedural states
CPT/HCPCS: 71045; 80048; 80053 ×3; 82553; 82728; 82962 ×4; 83540; 83550; 83735; 83880 ×2; 84484 ×2; 85025 ×4; 93005; 93306; 94640 ×4; 96374; 96375; 96376 ×3; 99285; G0378 ×3; 36415; 36416; J1940; J3490; J7620

== ENCOUNTER 2022-10-05 01:06 | Emergency (ER) | payer OTHER ==
[2022-10-05] MEDS ORDERED: Furosemide 40 MG/4 ML VIAL ONE (02:09)
[2022-10-05 04:59] LABS: RBC Count-Automated (BF) 969 /cu.mm; WBC/Nucleated-Auto (BF) 235 /cu.mm
[2022-10-05 05:03] LABS: BF Color Yellow; Body Fluid Source Ascites Body Fluid; Clarity Hazy (Clear); Tube # EDTA
[2022-10-05 05:40] LABS: Cell Count Non Hematic 74 %; Lymphocytes 26 %
== END 2022-10-05 05:06 | disposition home or self-care (01) ==
LOC: ERS 01:06
DX: R18.8 Other ascites (principal); E87.70 Fluid overload, unspecified; I25.10 Atherosclerotic heart disease of native coronary artery without angina pectoris; E11.9 Type 2 diabetes mellitus without complications; K21.9 Gastro-esophageal reflux disease without esophagitis; I11.0 Hypertensive heart disease with heart failure; I50.9 Heart failure, unspecified; E78.00 Pure hypercholesterolemia, unspecified; E66.9 Obesity, unspecified; J44.9 Chronic obstructive pulmonary disease, unspecified; F17.210 Nicotine dependence, cigarettes, uncomplicated; Z79.01 Long term (current) use of anticoagulants
CPT/HCPCS: 49083; 85060; 87070; 87205; 89051; 96374; J1940

== ENCOUNTER 2023-02-11 21:05 | Inpatient (IN) | payer MEDICARE, OTHER ==
[2023-02-11] MEDS ORDERED: Ondansetron ODT 4 MG TAB PO PRN (21:40)
[2023-02-11] MEDS ORDERED: Acetaminophen 650 MG Suppository PR PRN (21:40)
[2023-02-11] MEDS ORDERED: Ondansetron PF 4 MG/2 ML Vial IVP PRN (21:40)
[2023-02-11] MEDS ORDERED: fentaNYL 50 mcg/mL 1 mL Vial SLOW IVP PRN (21:46)
[2023-02-11] MEDS ORDERED: Glucagon 1 MG/ML KIT IM PRN (21:48)
[2023-02-11] MEDS ORDERED: Dextrose 5% in Water 1,000 ML IV PRN (21:48)
[2023-02-11] MEDS ORDERED: HumaLOG 300 UNITS/3 ML VIAL SC PRN (21:48)
[2023-02-11] MEDS ORDERED: Dextrose 50% Abboject 50 ML SYRINGE SLOW IVP PRN (21:48)
[2023-02-11] MEDS ORDERED: Ipratropium/Albuterol 3 ML NEB NEB PRN (21:53)
[2023-02-11] MEDS ORDERED: Piperacillin/Tazobactam 3.375 GM in Sodium Chloride 0.9% 100 ML IVPB SCH (22:00)
[2023-02-11] MEDS: Ipratropium/Albuterol 3 ML NEB NEB SCH (22:28)
[2023-02-11] MEDS ORDERED: VANCOMYCIN 1.25 GM/250 ML BAG 1.25 GM in Premix Bag 1 BAG IVPB SCH (22:30)
[2023-02-11] MEDS ORDERED: VANCOMYCIN 2 GRAM/500 ML BAG 2 GM in Premix Bag 1 BAG IVPB SCH (22:30)
[2023-02-11] MEDS: Nicotine 14 MG PATCH TD SCH (23:05)
[2023-02-11 23:07] LABS: #Monocytes 0.7 thou/uL (0.11-0.59); #Neutrophils 6.4 thou/uL (1.40-6.50); %Basophils 0.4 % (0.0-1.0); %Eosinophils 0.2 % (0.0-10.0); %Lymphocytes 10.1 % (21.0-51.0); %Monocytes 8.6 % (0.0-10.0); %Neutrophils 80.1 % (42.0-75.0); Hemoglobin 9.2 g/dL (14.0-18.0); Mean Corpuscular HGB CONC 30.8 g/dL (32.0-36.0); Mean Corpuscular Hemoglobin 30.8 pg (27.0-31.0); Mean Platelet Volume 10.1 fL (7.4-10.4); Platelet Count 125 10x3/uL (130-400); RBC Distribution Width 15.8 % (11.5-14.5); Red Blood Cell (RBC) Count 2.99 mill/uL (4.70-6.10)
[2023-02-11 23:26] LABS: Anion Gap 18 mmol/L (10-20); BUN (Urea Nitrogen) 27 mg/dL (8.4-25.7); Calc. Creatinine Clearance 25 mL/min (70-130); Calcium 10.2 mg/dL (7.8-10.44); Carbon Dioxide 23 mmol/L (23-31); Chloride 97 mmol/L (98-107); Estimated GFR 14; Glucose 137 mg/dL (80-115); Magnesium 2.1 mg/dL (1.6-2.6); Potassium 4.5 mmol/L (3.5-5.1); Sodium 133 mmol/L (136-145)
[2023-02-11 23:28] LABS: Lactic Acid 1.7 mmol/L (0.5-2.2)
[2023-02-11] MEDS ORDERED: Vancomycin Dialysis Sliding Scale (Wt > 99) FS SCH (23:45)
[2023-02-11] MEDS ORDERED: Vancomycin Dose by Levels Sliding Scale (Wt > 99) FS SCH (23:45)
[2023-02-12] MEDS: Ipratropium/Albuterol 3 ML NEB NEB SCH ×6 (02:07→22:23)
[2023-02-12] MEDS: Piperacillin/Tazobactam 3.375 GM in Sodium Chloride 0.9% 100 ML IVPB SCH ×2 (03:55→15:09)
[2023-02-12 04:10] LABS: #Monocytes 0.9 thou/uL (0.11-0.59); #Neutrophils 6.2 thou/uL (1.40-6.50); %Basophils 0.4 % (0.0-1.0); %Eosinophils 0.4 % (0.0-10.0); %Lymphocytes 11.3 % (21.0-51.0); %Monocytes 10.5 % (0.0-10.0); %Neutrophils 76.9 % (42.0-75.0); Hemoglobin 8.9 g/dL (14.0-18.0); Mean Corpuscular HGB CONC 30.8 g/dL (32.0-36.0); Mean Corpuscular Hemoglobin 30.9 pg (27.0-31.0); Mean Corpuscular Volume 100.3 fl (78.0-98.0); Mean Platelet Volume 10.1 fL (7.4-10.4); RBC Distribution Width 15.8 % (11.5-14.5); Red Blood Cell (RBC) Count 2.88 mill/uL (4.70-6.10); White Blood Cell (WBC) Count 8.1 10x3/uL (4.8-10.8)
[2023-02-12 04:36] LABS: Anion Gap 19 mmol/L (10-20); BUN (Urea Nitrogen) 31 mg/dL (8.4-25.7); Calc. Creatinine Clearance 23 mL/min (70-130); Calcium 10.1 mg/dL (7.8-10.44); Carbon Dioxide 23 mmol/L (23-31); Chloride 99 mmol/L (98-107); Estimated GFR 13; Glucose 144 mg/dL (80-115); Potassium 4.5 mmol/L (3.5-5.1); Sodium 136 mmol/L (136-145)
[2023-02-12 04:47] LABS: Platelet Count 114 10x3/uL (130-400)
[2023-02-12] MEDS: HYDROcodone/Acetaminophen 5/325 mg Tablet PO PRN ×2 (07:35→21:43)
[2023-02-12] MEDS: Pantoprazole 40 MG VIAL IVP SCH (07:36)
[2023-02-12 08:36] LABS: Vancomycin, Random 40.8 ug/mL (See Comment)
[2023-02-12] MEDS ORDERED: Lidocaine 4% Patch TD SCH (11:00)
[2023-02-12] MEDS: Lidocaine 4% Patch TD SCH (11:28)
[2023-02-12 11:34] LABS: INR-International Normal Ratio 1.5; Prothrombin Time 18.5 sec (12.0-14.7)
[2023-02-12 11:35] LABS: PTT 40.2 sec (22.9-36.1)
[2023-02-12] MEDS ORDERED: Sodium Bicarbonate 2.5 MEQ/5 ML VIAL ONE (12:24)
[2023-02-12] MEDS ORDERED: Lidocaine 1% PF 5 ML VIAL ONE (12:24)
[2023-02-12 15:00] LABS: RBC Count-Automated (BF) 5344 /cu.mm; WBC/Nucleated-Auto (BF) 133 /cu.mm
[2023-02-12] MEDS: HumaLOG 300 UNITS/3 ML VIAL SC PRN ×2 (15:09→17:28)
[2023-02-12 15:29] LABS: BF Color Red; Body Fluid Source Peritoneal Fluid; Clarity Hazy (Clear); Tube # EDTA
[2023-02-12 15:30] LABS: BF Segmented Neutrophils 11 %; Cell Count Non Hematic 81 %; Lymphocytes 8 %
[2023-02-12] MEDS ORDERED: Iopamidol 300 61% 30 ML VIAL ONE (15:36)
[2023-02-12 16:39] LABS: HBSAB Concentration Less than 8.00 mIU/mL; HBSAg Index 0.24 S/CO (0-0.99); Hep B Core Total Ab Non-Reactive (NonReactive); Hep B Core Total Index 0.13 S/CO (0-0.79); Hep B Surf AB Non-Reactive (NonReactive); Hep B Surf Ag Non-Reactive S/CO (NonReactive); Hep C IgG Ab Non-Reactive S/CO (NonReactive); Hep C Index 0.11 S/CO (0-0.79)
[2023-02-12] MEDS: Nicotine 14 MG PATCH TD SCH (21:42)
[2023-02-13] MEDS: Transdermal Patch Removal TOP SCH ×2 (00:30→22:32)
[2023-02-13] MEDS: Piperacillin/Tazobactam 3.375 GM in Sodium Chloride 0.9% 100 ML IVPB SCH ×2 (02:48→15:27)
[2023-02-13] MEDS: Ipratropium/Albuterol 3 ML NEB NEB SCH ×6 (02:48→22:51)
[2023-02-13 04:25] LABS: #Eosinphils 0.1 thou/uL (0.0-0.7); #Monocytes 0.6 thou/uL (0.11-0.59); #Neutrophils 5.4 thou/uL (1.40-6.50); %Basophils 0.3 % (0.0-1.0); %Eosinophils 1.6 % (0.0-10.0); %Monocytes 8.1 % (0.0-10.0); %Neutrophils 79.4 % (42.0-75.0); Hemoglobin 8.7 g/dL (14.0-18.0); Mean Corpuscular HGB CONC 31.1 g/dL (32.0-36.0); Mean Corpuscular Hemoglobin 31.1 pg (27.0-31.0); Mean Platelet Volume 10.2 fL (7.4-10.4); RBC Distribution Width 15.4 % (11.5-14.5); White Blood Cell (WBC) Count 6.8 10x3/uL (4.8-10.8)
[2023-02-13 04:27] LABS: Platelet Count 109 10x3/uL (130-400)
[2023-02-13 04:45] LABS: Anion Gap 21 mmol/L (10-20); BUN (Urea Nitrogen) 45 mg/dL (8.4-25.7); Calc. Creatinine Clearance 19 mL/min (70-130); Carbon Dioxide 23 mmol/L (23-31); Chloride 95 mmol/L (98-107); Estimated GFR 10; Glucose 175 mg/dL (80-115); Potassium 4.6 mmol/L (3.5-5.1); Sodium 134 mmol/L (136-145)
[2023-02-13] MEDS: HumaLOG 300 UNITS/3 ML VIAL SC PRN ×3 (06:17→18:09)
[2023-02-13 07:48] LABS: Vancomycin, Random 27.9 ug/mL (See Comment)
[2023-02-13 09:11] VITALS: BMI 29.7
[2023-02-13] MEDS: Lidocaine 4% Patch TD SCH (09:36)
[2023-02-13] MEDS: Pantoprazole 40 MG VIAL IVP SCH (09:36)
[2023-02-13] MEDS: Albumin 25% 25 GM/100 ML BOT IVPB PRN ×2 (10:35→10:59)
[2023-02-13] MEDS: Midodrine HCl 5 MG TAB PO SCH ×3 (10:38→22:10)
[2023-02-13] MEDS: Heparin 5,000 UNITS/ML VIAL SC SCH ×2 (10:38→22:03)
[2023-02-13] MEDS ORDERED: Heparin 10,000 UNITS/ 10 ML VIAL ONE (14:40)
[2023-02-13] MEDS: Budesonide 0.5 MG/2 ML NEB NEB SCH (17:36)
[2023-02-13] MEDS: HYDROcodone/Acetaminophen 5/325 mg Tablet PO PRN (22:04)
[2023-02-13] MEDS: Nicotine 14 MG PATCH TD SCH (22:32)
[2023-02-14] MEDS: Ipratropium/Albuterol 3 ML NEB NEB SCH ×6 (01:41→22:12)
[2023-02-14] MEDS: Acetaminophen 325 MG TAB PO PRN (03:51)
[2023-02-14] MEDS: Piperacillin/Tazobactam 3.375 GM in Sodium Chloride 0.9% 100 ML IVPB SCH ×2 (03:51→14:16)
[2023-02-14] MEDS: HumaLOG 300 UNITS/3 ML VIAL SC PRN (06:25)
[2023-02-14] MEDS: Budesonide 0.5 MG/2 ML NEB NEB SCH ×2 (07:59→19:06)
[2023-02-14] MEDS: Heparin 5,000 UNITS/ML VIAL SC SCH ×2 (08:39→22:29)
[2023-02-14] MEDS: Midodrine HCl 5 MG TAB PO SCH ×3 (08:39→22:29)
[2023-02-14] MEDS: Pantoprazole 40 MG VIAL IVP SCH (08:39)
[2023-02-14] MEDS: HYDROcodone/Acetaminophen 5/325 mg Tablet PO PRN (08:48)
[2023-02-14] MEDS: Lidocaine 4% Patch TD SCH (14:15)
[2023-02-14] MEDS: Nicotine 14 MG PATCH TD SCH (22:29)
[2023-02-14] MEDS: Transdermal Patch Removal TOP SCH (22:48)
[2023-02-15] MEDS: Ipratropium/Albuterol 3 ML NEB NEB SCH ×6 (01:21→22:41)
[2023-02-15] MEDS: Piperacillin/Tazobactam 3.375 GM in Sodium Chloride 0.9% 100 ML IVPB SCH ×2 (03:54→15:48)
[2023-02-15] MEDS: HumaLOG 300 UNITS/3 ML VIAL SC PRN (06:24)
[2023-02-15] MEDS: Acetaminophen 325 MG TAB PO PRN ×2 (06:32→22:43)
[2023-02-15 07:14] LABS: Anion Gap 20 mmol/L (10-20); BUN (Urea Nitrogen) 43 mg/dL (8.4-25.7); Calc. Creatinine Clearance 19 mL/min (70-130); Calcium 9.9 mg/dL (7.8-10.44); Carbon Dioxide 22 mmol/L (23-31); Chloride 97 mmol/L (98-107); Estimated GFR 11; Glucose 172 mg/dL (80-115); Potassium 4.2 mmol/L (3.5-5.1); Sodium 135 mmol/L (136-145)
[2023-02-15] MEDS: Budesonide 0.5 MG/2 ML NEB NEB SCH ×2 (07:36→17:18)
[2023-02-15] MEDS: Midodrine HCl 5 MG TAB PO SCH ×3 (08:30→22:06)
[2023-02-15] MEDS: Pantoprazole 40 MG VIAL IVP SCH (08:31)
[2023-02-15] MEDS: Heparin 5,000 UNITS/ML VIAL SC SCH ×2 (08:33→22:07)
[2023-02-15] MEDS: HYDROcodone/Acetaminophen 5/325 mg Tablet PO PRN ×2 (08:34→15:48)
[2023-02-15] MEDS: Lidocaine 4% Patch TD SCH (14:23)
[2023-02-15] MEDS ORDERED: Heparin 10,000 UNITS/ 10 ML VIAL ONE (14:39)
[2023-02-15] MEDS: Nystatin 500,000 UNITS/5 ML UDCUP SSW SCH ×2 (18:20→22:06)
[2023-02-15] MEDS: Nicotine 21 MG PATCH TOP SCH (22:42)
[2023-02-15] MEDS: Transdermal Patch Removal TOP SCH (22:51)
[2023-02-16] MEDS: Ipratropium/Albuterol 3 ML NEB NEB SCH ×6 (02:33→22:15)
[2023-02-16] MEDS: Piperacillin/Tazobactam 3.375 GM in Sodium Chloride 0.9% 100 ML IVPB SCH ×2 (03:43→15:31)
[2023-02-16] MEDS: Budesonide 0.5 MG/2 ML NEB NEB SCH ×2 (07:01→19:11)
[2023-02-16] MEDS: Heparin 5,000 UNITS/ML VIAL SC SCH ×2 (08:32→20:57)
[2023-02-16] MEDS: Midodrine HCl 5 MG TAB PO SCH ×3 (08:33→20:57)
[2023-02-16] MEDS: HYDROcodone/Acetaminophen 5/325 mg Tablet PO PRN (08:33)
[2023-02-16] MEDS: Nystatin 500,000 UNITS/5 ML UDCUP SSW SCH ×4 (08:34→20:57)
[2023-02-16 08:41] LABS: Anion Gap 18 mmol/L (10-20); BUN (Urea Nitrogen) 31 mg/dL (8.4-25.7); Calc. Creatinine Clearance 23 mL/min (70-130); Calcium 9.9 mg/dL (7.8-10.44); Carbon Dioxide 26 mmol/L (23-31); Chloride 95 mmol/L (98-107); Estimated GFR 13; Glucose 121 mg/dL (80-115); Potassium 4.3 mmol/L (3.5-5.1); Sodium 135 mmol/L (136-145)
[2023-02-16] MEDS ORDERED: Epoetin (ESRD) 10,000 UNITS/ML VIAL IVP SCH ×2 (09:00→14:00)
[2023-02-16] MEDS: Lidocaine 4% Patch TD SCH (15:35)
[2023-02-16] MEDS: Sevelamer Carbonate 800 MG TAB PO SCH (16:40)
[2023-02-16] MEDS: Transdermal Patch Removal TOP SCH (23:25)
[2023-02-17] MEDS: Nicotine 21 MG PATCH TOP SCH (00:44)
[2023-02-17] MEDS: Piperacillin/Tazobactam 3.375 GM in Sodium Chloride 0.9% 100 ML IVPB SCH ×2 (02:44→14:55)
[2023-02-17] MEDS: Ipratropium/Albuterol 3 ML NEB NEB SCH ×4 (04:00→13:35)
[2023-02-17] MEDS: Budesonide 0.5 MG/2 ML NEB NEB SCH (06:22)
[2023-02-17 08:37] VITALS: BP 115/70; TEMP 98.1
[2023-02-17] MEDS: Sevelamer Carbonate 800 MG TAB PO SCH ×2 (08:49→12:01)
[2023-02-17] MEDS: Heparin 5,000 UNITS/ML VIAL SC SCH (08:49)
[2023-02-17] MEDS: Midodrine HCl 5 MG TAB PO SCH ×2 (08:49→14:55)
[2023-02-17] MEDS: Nystatin 500,000 UNITS/5 ML UDCUP SSW SCH ×2 (08:54→13:44)
[2023-02-17] MEDS ORDERED: Multivitamin W/ Minerals 1 TAB PO SCH (09:00)
[2023-02-17] MEDS ORDERED: Gabapentin 300 MG CAP PO SCH (09:00)
[2023-02-17] MEDS ORDERED: Calcitriol 0.25 MCG CAP PO SCH (09:00)
[2023-02-17] MEDS ORDERED: Cholecalciferol 1,000 UNITS (25 MCG) TAB PO SCH (09:00)
[2023-02-17] MEDS: Lidocaine 4% Patch TD SCH (12:01)
== END 2023-02-17 17:27 | disposition home or self-care (01) | DRG 871 ==
LOC: IMCU/EMU 21:05 → T4-B 02-14 19:08
PROVIDERS: ADMIT Internal Medicine; ATTEND Family Medicine
PROC: 3E03329 Introduction of Other Anti-infective into Peripheral Vein, Percutaneous Approach (ICD-10-PCS; 2023-02-11)
PROC: 0W9G3ZZ Drainage of Peritoneal Cavity, Percutaneous Approach (ICD-10-PCS; 2023-02-12)
PROC: 02HV33Z Insertion of Infusion Device into Superior Vena Cava, Percutaneous Approach (ICD-10-PCS; 2023-02-12)
PROC: B5181ZA Fluoroscopy of Superior Vena Cava using Low Osmolar Contrast, Guidance (ICD-10-PCS; 2023-02-12)
PROC: B51W1ZZ Fluoroscopy of Dialysis Shunt/Fistula using Low Osmolar Contrast (ICD-10-PCS; 2023-02-12)
PROC: 5A1D70Z Performance of Urinary Filtration, Intermittent, Less than 6 Hours Per Day (ICD-10-PCS; principal; 2023-02-15)
DX: A41.9 Sepsis, unspecified organism (principal); J96.21 Acute and chronic respiratory failure with hypoxia; N18.6 End stage renal disease; N39.0 Urinary tract infection, site not specified; B37.0 Candidal stomatitis; I13.2 Hypertensive heart and chronic kidney disease with heart failure and with stage 5 chronic kidney disease, or end stage renal disease; I50.22 Chronic systolic (congestive) heart failure; R18.8 Other ascites; E87.1 Hypo-osmolality and hyponatremia; T82.590A Other mechanical complication of surgically created arteriovenous fistula, initial encounter; K74.60 Unspecified cirrhosis of liver; F17.210 Nicotine dependence, cigarettes, uncomplicated; E87.5 Hyperkalemia; D63.1 Anemia in chronic kidney disease; E11.22 Type 2 diabetes mellitus with diabetic chronic kidney disease; I48.91 Unspecified atrial fibrillation; K21.9 Gastro-esophageal reflux disease without esophagitis; G25.81 Restless legs syndrome; J44.9 Chronic obstructive pulmonary disease, unspecified; Z79.4 Long term (current) use of insulin; Z99.2 Dependence on renal dialysis; Z95.0 Presence of cardiac pacemaker; Z95.1 Presence of aortocoronary bypass graft; Z95.2 Presence of prosthetic heart valve; Z88.6 Allergy status to analgesic agent; Z88.8 Allergy status to other drugs, medicaments and biological substances; Z79.899 Other long term (current) drug therapy; Z79.82 Long term (current) use of aspirin; Z90.49 Acquired absence of other specified parts of digestive tract; Z86.73 Personal history of transient ischemic attack (TIA), and cerebral infarction without residual deficits; G47.33 Obstructive sleep apnea (adult) (pediatric); Y83.8 Other surgical procedures as the cause of abnormal reaction of the patient, or of later complication, without mention of misadventure at the time of the procedure
CPT/HCPCS: 36415; 36416; 36901; 49083; 71045; 72040; 80048; 80202; 82140; 83605; 83735; 84157; 85025; 85060; 85610; 85730; 86704; 87040; 87070; 87205; 89051; 93005; 93010; 94640; 94660; C9113; J1644; J1815; J2543; J3370; J3490; J7620; J7626; P9047; Q4081; Q9967

== ENCOUNTER 2023-03-17 03:05 | Emergency (ER) | payer MEDICARE, OTHER ==
[2023-03-17] MEDS ORDERED: Ziprasidone 20 MG CAP ONE (12:17)
[2023-03-17] MEDS ORDERED: Midodrine HCl 5 MG TAB PO SCH (16:45)
[2023-03-17] MEDS ORDERED: Acetaminophen 500 MG TAB ONE (17:23)
[2023-03-17] MEDS ORDERED: HYDROcodone/Acetaminophen 10/325 mg Tablet ONE (17:23)
[2023-03-18 04:26] LABS: ALT (SGPT) 9 U/L (8-55); AST (SGOT) 16 U/L (5-34); Albumin 3.5 g/dL (3.4-4.8); Alkaline Phosphatase 86 U/L (40-110); Anion Gap 11 mmol/L (10-20); BUN (Urea Nitrogen) 26 mg/dL (8.4-25.7); Bilirubin, Total 0.5 mg/dL (0.2-1.2); Calc. Creatinine Clearance 0 mL/min (70-130); Calcium 10.3 mg/dL (7.8-10.44); Carbon Dioxide 26 mmol/L (23-31); Chloride 99 mmol/L (98-107); Estimated GFR 11; Globulin 3.2 g/dL (2.4-3.5); Glucose 91 mg/dL (80-115); Potassium 4.4 mmol/L (3.5-5.1); Protein, Total 6.7 g/dL (5.8-8.1); Sodium 132 mmol/L (136-145)
[2023-03-18] MEDS ORDERED: Midodrine HCl 5 MG TAB PO SCH (09:00)
[2023-03-18 11:16] LABS: Hep B Surf AB Non-Reactive (NonReactive); Hep B Surf Ag Non-Reactive S/CO (NonReactive)
[2023-03-18 11:17] LABS: HBSAg Index 0.54 S/CO (0-0.99)
[2023-03-18] MEDS ORDERED: Gabapentin 300 MG CAP PO SCH (23:45)
== END 2023-03-17 15:45 | disposition home or self-care (01) ==
LOC: ERS 03:05
DX: R45.851 Suicidal ideations (principal); I25.10 Atherosclerotic heart disease of native coronary artery without angina pectoris; I48.91 Unspecified atrial fibrillation; E11.9 Type 2 diabetes mellitus without complications; E78.00 Pure hypercholesterolemia, unspecified; K21.9 Gastro-esophageal reflux disease without esophagitis; E66.9 Obesity, unspecified; J44.9 Chronic obstructive pulmonary disease, unspecified; I11.0 Hypertensive heart disease with heart failure; I50.9 Heart failure, unspecified; F17.210 Nicotine dependence, cigarettes, uncomplicated; Z79.01 Long term (current) use of anticoagulants; Z79.899 Other long term (current) drug therapy
CPT/HCPCS: 36415; 80053; 86706; 87340; 99285